=== PATIENT | male | born 1995 | race Two or more races ===

== ENCOUNTER 2025-04-26 20:59 | Emergency (ER) | payer OTHER ==
[~2025-04-26] VITALS: Ht 185.4 cm; Wt 95.3 kg
[2025-04-26] MEDS ORDERED: NALO4SPR BNOSTRILS (21:55)
[2025-04-26] MEDS ORDERED: ONDA4TAB5 PO (21:55)
[2025-04-27 03:19] VITALS: BP 135/60; TEMP 98; O2SAT 97
== END 2025-04-27 03:19 ==
LOC: ER 21:03
DX: F19.10 Other psychoactive substance abuse, uncomplicated (principal); R07.9 Chest pain, unspecified
CPT/HCPCS: 98960